=== PATIENT | female | born 1980 | race Caucasian/White ===

== ENCOUNTER 2021-12-20 14:16 | Outpatient (CLI) | payer BC, SELFPAY ==
[2021-12-20 16:51] LABS: Cholesterol* 234 mg/dL (90-199)
[2021-12-20 16:52] LABS: Glucose* 98 mg/dL (60-115); HDL Cholesterol* 63 mg/dL (>=50); LDL Cholesterol Calculated 146 mg/dL (<100); Triglycerides* 124 mg/dL (40-149)
== END 2021-12-20 14:17 | disposition home or self-care (01) ==
PROVIDERS: Visit Provider Physician Assistant
DX: N93.9 Abnormal uterine and vaginal bleeding, unspecified (principal); N83.202 Unspecified ovarian cyst, left side; R93.89 Abnormal findings on diagnostic imaging of other specified body structures
CPT/HCPCS: 80061; 82947; 84443; 87624; 88175

== ENCOUNTER 2021-12-21 07:58 | Outpatient (CLI) | payer BC, SELFPAY ==
--- NOTE | 2021-12-21 08:15 | CRLHL7_ITS ---
For Patients: As a result of the Century Cures Act, medical imaging exams and procedure reports are released immediately into your electronic medical record. You may view this report before your referring provider. If you have questions, please contact your health care provider. INDICATION: HEAVY, FREQUENT MENSES COMPARISON: none TECHNIQUE: 2D nicole scale and color Doppler images were acquired of the pelvis using a transabdominal and transvaginal approach. FINDINGS: Sonographic images demonstrate a normal size and smooth outer contour of the uterus. Uterus measures 9.7 cm in length by 4.7 cm in AP diameter by 4.9 cm in transverse dimension. The myometrium has a mildly heterogeneous echotexture. The endometrial lining appears normal and measures 3 mm in composite thickness. The right ovary measures 2.5 x 1.6 x 2.4 cm in size and the left ovary measures 5.8 x 3.8 x 4.7 cm. The ovaries demonstrate normal arterial and venous blood flow on color Doppler analysis. Simple left ovarian cyst is present measuring 5.3 x 4.0 x 4.7 cm. There are no suspicious fluid collections within the cul-de-sac. IMPRESSION: Endometrial thickness 3 millimeters. Simple left ovarian cyst measuring 5.3 cm. Dictated by Bharath Anderson MD @ 12/21/2021 10:13:16 AM (Electronically Signed)
== END 2021-12-21 07:59 | disposition home or self-care (01) ==
LOC: US 07:58
PROVIDERS: Visit Provider Physician Assistant
DX: N92.0 Excessive and frequent menstruation with regular cycle (principal); N83.202 Unspecified ovarian cyst, left side; R93.89 Abnormal findings on diagnostic imaging of other specified body structures
CPT/HCPCS: 76830; 76856; 93976

== ENCOUNTER 2022-02-20 13:00 | Outpatient (CLI) | payer BC, SELFPAY ==
--- NOTE | 2022-02-20 13:20 | CRLHL7_ITS ---
For Patients: As a result of the Cures Act, medical imaging exams and procedure reports are released immediately into your electronic medical record. You may view this report before your referring provider. If you have questions, please contact your health care provider. BILATERAL SCREENING MAMMOGRAM WITH COMPUTER-AIDED DETECTION AND TOMOSYNTHESIS TECHNIQUE: CC and MLO views were obtained. These mammographic images have been obtained using full-field digital technique. These mammographic images were interpreted with the benefit of computer-aided detection. Breast Tomosynthesis was used in this interpretation. COMPARISON FILM: Baseline. No priors available. FINDINGS: The breasts are heterogeneously dense, which may obscure small masses IMPRESSION: There is no radiographic evidence for malignancy. ASSESSMENT: BI-RADS Category 1: Negative RECOMMENDATION: Routine screening mammogram in 1 year. A lay language report of this examination will be provided to the patient. Gerry Andres M.D. Diagnostic/Nuclear Medicine Radiologist [email or web address] Transcribed: 3:20 p.m. VI/Dictated by: Gerry Andres MD @ 02/21/2022 8:19:00 AM (Electronically Signed)
== END 2022-02-20 13:01 | disposition home or self-care (01) ==
PROVIDERS: Visit Provider Physician Assistant
DX: Z12.31 Encounter for screening mammogram for malignant neoplasm of breast (principal); R92.2 Inconclusive mammogram
CPT/HCPCS: 77063; 77067

== ENCOUNTER 2023-07-11 10:05 | Outpatient (CLI) | payer BC, SELFPAY ==
--- NOTE | 2023-07-11 10:15 | MM_ITS ---
Patient: ELISA BLAKE Facility:?[facility] Patient ID:?[id number] Site Patient ID:?[id number]. Site :?[id number] Study:?XRay-Breast Bilateral 3D W/CAD-07/11/2023 10:27:49 AM Ordering Physician:Yoselyn Arriola Final Report: BILATERAL SCREENING MAMMOGRAM WITH COMPUTER-AIDED DETECTION AND TOMOSYNTHESIS TECHNIQUE: CC and MLO views were obtained. These mammographic images have been obtained using full-field digital technique. These mammographic images were interpreted with the benefit of computer-aided detection. Breast Tomosynthesis was used in this interpretation. COMPARISON FILM: 02/20/22 FINDINGS: There are scattered areas of fibroglandular density. IMPRESSION: There is no radiographic evidence for malignancy. ASSESSMENT: BI-RADS Category 1: Negative RECOMMENDATION: Routine screening mammogram in 1 year. A lay language report of this examination will be provided to the patient. Bharath Anderson M.D. Diagnostic Radiologist [email or web address] DSM/sp R& Transcribed: 4:43 p.m. SP/Dictated by: Bharath Anderson MD @ 07/20/2023 12:56:00 PM Signed by:?Bharath Anderson MD @07/20/2023 4:45:29 PM (Electronic Signature)
== END 2023-07-11 10:06 | disposition home or self-care (01) ==
LOC: MAMMO 10:05
PROVIDERS: PCP Family Medicine; Visit Provider Family Medicine
DX: Z12.31 Encounter for screening mammogram for malignant neoplasm of breast (principal)
CPT/HCPCS: 77063; 77067

== ENCOUNTER 2025-02-16 12:12 | Emergency (ER) | payer BC, SELFPAY ==
[2025-02-16] VITALS (24 sets, daily range): BP systolic 124–157; BP diastolic 67–114; PULSE 82–123; RESP 12–24; TEMP 36.3–36.4; O2SAT 73–100; BMI 31.4
--- NOTE | 2025-02-16 12:56 | CRLHL7_ITS ---
For Patients: As a result of the Century Cures Act, medical imaging exams and procedure reports are released immediately into your electronic medical record. You may view this report before your referring provider. If you have questions, please contact your health care provider. INDICATION: Left flank pain. TECHNIQUE: CT abdomen and pelvis acquired with 100 cc Omnipaque 350 IV contrast. COMPARISON: None. FINDINGS: Lung bases are clear. The liver normal in size. No definite liver lesion is seen on this unenhanced CT. The gallbladder is partially distended. No gross biliary ductal dilatation. The spleen is unremarkable. The pancreas is unremarkable. The adrenal glands are unremarkable. A dilated left renal pelvis is noted with mild left hydronephrosis. This appears to be secondary to a 3 millimeter stone within the urinary bladder adjacent to the ureterovesical junction. There is subtle high density noted adjacent which is indeterminate (series 2, image 133). A calcification within the left pelvis measuring 3.5 millimeters is favored to represent a phlebolith rather than a ureteral stone. No left renal stone is seen. Prominent right renal pelvis without overt right hydronephrosis. No right renal stone. The urinary bladder is partially distended without substantial thickening or stranding. Thickening of a decompressed rectum is likely due to underdistention. The appendix is nondilated. The small bowel is nondilated. The stomach is partially distended. No free air. No ascites. No organized drainable fluid collection is seen. No lymphadenopathy is seen. Multiple subcentimeter lymph nodes are noted. The uterus and adnexa are unremarkable. The aorta is nonaneurysmal. Bone windows demonstrate no suspicious lytic or sclerotic lesion. No fracture. IMPRESSION: 1. Mild left hydronephrosis secondary to a 3 millimeter stone within the urinary bladder adjacent to the left ureterovesical junction. There is subtle indeterminate high density noted just adjacent to the stone. Additionally there is an indeterminate 3.5 millimeter calcification within the left pelvis which is favored to represent a phlebolith rather than a ureteral stone. Short-term follow-up CT urogram may be performed for further evaluation. Please note that all CT scans at this facility use dose modulation, iterative reconstruction, and/or weight-based dosing when appropriate to reduce radiation dose to as low as reasonably achievable. Dictated by Keven Graham MD @ 02/16/2025 2:15:20 PM (Electronically Signed)
--- NOTE | 2025-02-16 12:57 | ED.GENADULT ---
HPI - General Adult General Date Seen: 02/16/25 Chief complaint: Flank Pain Stated complaint: sharp pain in L stomach and back Time Seen by Provider: 02/16/25 12:35 History of Present Illness HPI narrative: Pleasant generally healthy 44-year-old female presenting to the ER today with concern for severe left flank pain, left lower quadrant abdominal pain. She is generally healthy. She has noted a little bit of trouble where she has had urinary frequency for the past couple of days but not really similar to previous UTIs. She has not had any hematuria. Menstrual cycle started this morning. Bowel movements have been normal. About an hour and half prior to arrival she had onset of pretty severe pain in her left flank radiating to her lower quadrant. It was so severe made her nauseous and she threw up once (nonbloody). She has not had any fever. She still nauseous. She is having waves of intense pain. No history of kidney stones. Related Data Allergies Allergy/AdvReac Type Severity Reaction Status Date / Time No Known Drug Allergies Allergy Verified 04/19/23 08:02 [facility] Medical History (Updated 02/16/25 @ 16:25 by Toni Bennett MD) Obesity (BMI 30.0-34.9) ?E66.9 - Obesity, unspecified (ICD-10) Dyslipidemia ?E78.5 - Hyperlipidemia, unspecified (ICD-10) ADHD ?F90.9 - Attention-deficit hyperactivity disorder, unspecified type (ICD-10) Menorrhagia ?N92.0 - Excessive and frequent menstruation with regular cycle (ICD-10) Depression with anxiety ?F41.8 - Other specified anxiety disorders (ICD-10) Surgical History History of loop electrical excision procedure (LEEP) (~2002) ?Z98.890 - Other specified postprocedural states (ICD-10) History of broken finger (~2002) ?Z87.81 - Personal history of (healed) traumatic fracture (ICD-10) History of foot surgery (~2002) ?Z98.890 - Other specified postprocedural states (ICD-10) Family History Diabetes Father Paternal Grandfather ADHD Daughter Son High blood pressure Father Thyroid disease Maternal Grandmother Stroke Sister, Onset Age: 35 Social History (Updated 11/03/22 @ 09:19 by Yoselyn Rojas MD) Narrative: . 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 Quit 2005, history of 2 pack years Rare alcohol use. exercise, walking 20 min , jumping rope Denies recreational drug use. No concerns with safety or abuse. Smoking Status: Former smoker How often do you have a drink containing alcohol: never How often do you have six or more drinks on one occasion: Never AUDIT-C Alcohol total score: 0 Non-prescribed substance use: denies use Exam Narrative: Exam Narrative: Constitutional: Appears well-developed and well-nourished. Alert. Standing up at the bedside holding her left side, rocking back and forth. Looks quite uncomfortable. HENT: Head: Atraumatic. Nose: Nose normal. Mouth/Throat: Oral mucosa is clear and moist. no trismus. Eyes: Conjunctivae normal. EOM normal. Pupils equal, round, and reactive to light. No scleral icterus. Neck: Normal range of motion. Neck supple. No tracheal deviation present. Cardiovascular: Normal rate, regular rhythm. No gallop. No friction rub. No murmur heard Pulmonary/Chest: Effort normal. No stridor. No respiratory distress. No wheezes. No rales. No rhonchi . No ribcage tenderness. Abdominal: Soft. Bowel sounds normal. No distension. No mass. Left CVA and left lower quadrant tenderness. No rebound. No guarding. No bruising or rash. Musculoskeletal: RUE: Normal range of motion. No tenderness. No deformity LUE: Normal range of motion. No tenderness. No deformity RLE: Normal range of motion. No edema. No tenderness. No deformity LLE: Normal range of motion. No edema. No tenderness. No deformity Neurological: Alert and oriented to person, place, and time. Normal strength. CN II-VII intact. No sensory deficit. GCS eye subscore is 4. GCS verbal subscore is 5. GCS motor subscore is 6. Normal coordination Skin: Skin is warm and dry. No rash noted. No pallor. Normal capillary refill. Psychiatric: Normal mood. Normal affect. Const: Vital Signs, click to edit/add: Vital Signs - 24 hr 02/16/25 12:22 02/16/25 13:23 02/16/25 13:30 Temperature 97.6 F Pulse Rate 88 82 Pulse Rate [Pulse Oximeter] 92 Respiratory Rate 24 Blood Pressure Blood Pressure [Ri ght Upper Arm] 157/84 H Pulse Oximetry 98 100 100 Oxygen Delivery Me thod Room Air Oxygen Flow Rate 02/16/25 13:36 02/16/25 13:37 02/16/25 14:03 Temperature Pulse Rate 82 85 Pulse Rate [Pulse Oximeter] Respiratory Rate Blood Pressure 147/91 H 142/83 H Blood Pressure [Ri ght Upper Arm] Pulse Oximetry 100 100 Oxygen Delivery Me thod Oxygen Flow Rate 02/16/25 14:30 02/16/25 14:51 02/16/25 15:00 Temperature Pulse Rate 90 93 106 H Pulse Rate [Pulse Oximeter] Respiratory Rate 12 Blood Pressure 148/94 H 152/93 H Blood Pressure [Ri ght Upper Arm] Pulse Oximetry 98 93 94 Oxygen Delivery Me thod Oxygen Flow Rate 02/16/25 15:30 02/16/25 16:00 02/16/25 16:14 Temperature Pulse Rate 95 123 H 102 H Pulse Rate [Pulse Oximeter] Respiratory Rate Blood Pressure 138/82 Blood Pressure [Ri ght Upper Arm] Pulse Oximetry 96 98 98 Oxygen Delivery Me thod Oxygen Flow Rate 02/16/25 16:34 02/16/25 16:45 02/16/25 17:00 Temperature Pulse Rate 112 H 118 H 91 Pulse Rate [Pulse Oximeter] Respiratory Rate Blood Pressure 145/114 H Blood Pressure [Ri ght Upper Arm] Pulse Oximetry 99 100 94 Oxygen Delivery Me thod Room Air Oxygen Flow Rate 02/16/25 17:01 02/16/25 17:02 02/16/25 17:02 Temperature Pulse Rate 92 100 Pulse Rate [Pulse Oximeter] Respiratory Rate Blood Pressure 138/79 Blood Pressure [Ri ght Upper Arm] Pulse Oximetry 73 L 94 95 Oxygen Delivery Me thod Nasal Cannula Nasal Cannula Nasal Cannula Oxygen Flow Rate 2.5 2.5 2.5 02/16/25 17:10 Temperature Pulse Rate Pulse Rate [Pulse Oximeter] Respiratory Rate Blood Pressure Blood Pressure [Ri ght Upper Arm] Pulse Oximetry 98 Oxygen Delivery Me thod Nasal Cannula Oxygen Flow Rate 1 Course Vital Signs Vital signs: Initial Vital Signs Temperature 97.6 F 02/16/25 12:22 Temperature Source Temporal Artery Scan 02/16/25 12:22 Pulse Rate 92 02/16/25 12:22 Respiratory Rate 24 02/16/25 12:22 Blood Pressure 157/84 H 02/16/25 12:22 Blood Pressure Mean 108 H 02/16/25 12:22 Blood Pressure Position Sitting 02/16/25 12:22 Pulse Oximetry 98 02/16/25 12:22 Oxygen Delivery Method Room Air 02/16/25 12:22 Vital Signs Temperature 97.6 F 02/16/25 12:22 Pulse Rate 92 02/16/25 12:22 Respiratory Rate 24 02/16/25 12:22 Blood Pressure 157/84 H 02/16/25 12:22 Pulse Oximetry 98 02/16/25 12:22 Oxygen Delivery Method Room Air 02/16/25 12:22 Temperature 97.6 F 02/16/25 12:22 Pulse Rate 100 02/16/25 17:02 Respiratory Rate 12 02/16/25 14:30 Blood Pressure 138/79 02/16/25 17:01 Pulse Oximetry 98 02/16/25 17:10 Oxygen Delivery Method Nasal Cannula 02/16/25 17:10 Oxygen Flow Rate 1 02/16/25 17:10 Medications Administered Medications: Generic Name Dose Route Start Last Admin Trade Name Freq PRN Reason Stop Dose Admin Hydromorphone HCl 0.5 mg 02/16/25 12:56 02/16/25 16:10 Hydromorphone 0.5 Mg/0.5 Ml Inj IVP 0.5 mg Q1H PRN Administration Pain Hydromorphone HCl 0.5 mg 02/16/25 13:42 02/16/25 16:27 Hydromorphone 0.5 Mg/0.5 Ml Inj IVP 0.5 mg Q1H PRN Administration Pain Discontinued Medications Generic Name Dose Route Start Last Admin Trade Name Freq PRN Reason Stop Dose Admin Hydromorphone HCl 1 mg 02/16/25 14:38 02/16/25 14:00 Hydromorphone 0.5 Mg/0.5 Ml Inj IVP 02/16/25 14:39 1 mg ONCE ONE Administration Sodium Chloride 1,000 mls @ 1,000 mls/hr 02/16/25 13:00 02/16/25 14:15 0.9 % Sodium Chloride 1000 Ml IV 02/16/25 13:59 Infused .Q1H ANASTACIA Infusion Sodium Chloride 1,000 mls @ 1,000 mls/hr 02/16/25 15:45 02/16/25 16:45 0.9 % Sodium Chloride 1000 Ml IV 02/16/25 16:44 Infused .Q1H ANASTACIA Infusion Ceftriaxone Sodium 1 gm/ 100 mls @ 200 mls/hr 02/16/25 16:20 02/16/25 17:25 Sodium Chloride IVPB 02/16/25 16:49 200 mls/hr ONCE ONE Administration Acetaminophen 1,000 mg in 100 mls @ 400 mls/hr 02/16/25 16:24 02/16/25 16:54 Acetaminophen Inj IVPB 02/16/25 16:38 Infused ONCE ONE Infusion Ketamine HCl 30 mg/ Sodium 100.3 mls @ 200.6 mls/hr 02/16/25 16:34 02/16/25 17:20 Chloride IVPB 02/16/25 16:35 Infused ONCE ONE Infusion Ketorolac Tromethamine 15 mg 02/16/25 12:56 02/16/25 13:11 Ketorolac 15 Mg/Ml Inj IVP 02/16/25 12:57 15 mg ONCE ONE Administration Ondansetron HCl 4 mg 02/16/25 12:56 02/16/25 13:11 Ondansetron 2 Mg/Ml Inj IVP 02/16/25 12:57 4 mg ONCE ONE Administration Ondansetron HCl 4 mg 02/16/25 15:36 02/16/25 15:39 Ondansetron 2 Mg/Ml Inj IVP 02/16/25 15:37 4 mg ONCE ONE Administration Medical Decision Making MDM Narrative Medical decision making narrative: This patient presents with sudden onset of severe flank pain. Differential Diagnosis considered includes: Ureterolithiasis, UTI, pyelonephritis, AAA, colitis, diverticulitis, volvulus, appendicitis, among others. At this point, the evaluation indicates that ureterolithiasis is the cause of the patient's symptoms. Initial Urinalysis shows 25-50 red cells and white cells. Also moderate bacteria but is contaminated. With a question of possible infection, even though she is afebrile and not ?septic? appearing we will start her on IV antibiotics-Rocephin to cover possible UTI. I have ordered and we are attempting to obtain a repeat, clean-catch urine sample to see if this is truly an infection or not. The patient does have fairly significant and very difficult to control pain. After her 1st dose of Toradol and her 1st 3 doses of Dilaudid (1.5 mg total) she seemed to be much improved but her pain flared up again. I suspect she was probably in a trough between waves of colicky pain. She has received initial 3 doses of Dilaudid as well as IV acetaminophen and IV ketamine for pain control. At this point we have given her enough pain meds to make her mildly hypoxic requiring nasal cannula. She is more comfortable but not really well controlled yet. It is clear that she cannot discharge home with oral pain medications and expect adequate pain relief. Therefore hospitalization is indicated Discussed with our hospitalist, obi cagle. She advises that since this patient has an obstructing kidney stone the transfer is indicated rather than hospitalization here in [place] for pain control. Discussed this with the patient. She agrees with plan for transfer. She requests transfer to [facility] [place]. I contacted the [facility] transfer line and, unfortunately that, they have no open beds in their system. Therefore male was not an option today. I was able to contact the a line access center and there is an open bed for this patient at [facility]. [facility] has the capacity to control her pain as well as urologic consult taking service. Patient is agreeable to transfer to [facility]. Patient is accepted by Dr. Khnana, hospitalist. At the time of this dictation the patient remains hemodynamically stable, but on oxygen. Discussed with my oncoming partner, Dr. Tejada, will monitor the patient's condition and administer additional meds as needed. We are currently awaiting her bed assignment and [facility] and anticipate transfer soon. Lab Data Labs: Lab Results 02/16/25 02/16/25 Range/Units 13:00 14:45 WBC 9.11 (4.50-11.00) K/uL RBC 4.78 (4.00-5.20) m/uL Hgb 14.4 (12.0-16.0) gm/dL Hct 41.6 (33.0-51.0) % MCV 87 (80-100) fL MCH 30 (26-34) pg MCHC 35 (32-36) gm/dL RDW Coeff of Nava 11.8 (11.5-15.5) % Plt Count 319 (140-440) K/uL Neut % (Auto) 65.8 (42.0-72.0) % Lymph % (Auto) 24.9 (20-44) % Vermilion % (Auto) 8.2 (0.0-11.0) % Eos % (Auto) 0.8 (0.0-7.0) % Baso % (Auto) 0.1 (0.0-3.0) % Neut # (Auto) 5.99 (1.7-7.0) K/uL Lymph # (Auto) 2.27 (0.90-2.90) K/uL Vermilion # (Auto) 0.70 (0.00-0.90) K/UL Eos # (Auto) 0.07 (0.00-0.50) K/uL Baso # (Auto) 0.01 (0.00-0.30) K/uL Abs Immat Gran (auto) 0.02 (0.00-0.30) K/uL Imm/Tot Granulo (auto) 0.2 % Sodium 135 (135-149) mmol/L Potassium 3.5 L (3.6-5.1) mmol/L Chloride 106 (96-114) mmol/L Carbon Dioxide 21 (20-32) mmol/L Anion Gap 8 (7-15) mEq/L BUN 13 (5-24) mg/dL Creatinine 0.9 (0.5-1.5) mg/dL Estimated Creat Clear 69.60 Estimated GFR 81 ml/min Glucose 110 (60-115) mg/dL Calcium 9.3 (8.4-10.6) mg/dL Lipase 54 (23-300) U/L HCG, Qual Negative (Negative) Urine Color Red A (Yellow) Urine Appearance Turbid A (Clear) Urine pH 8.5 (5.0-8.5) Ur Specific Phyllis 1.020 (1.000-1.030) Urine Protein 2+ A (Negative) Urine Glucose (UA) Negative (Negative) Urine Ketones 2+ A (Negative) Urine Blood 3+ A (Negative) Urine Nitrite Negative (Negative) Urine Bilirubin Negative (Negative) Urine Urobilinogen 0.2 (0.2-1.0) Ur Leukocyte Esterase Trace A (Negative) Urine RBC 25-50 A (0-2) Urine WBC 25-50 A (0-5) Ur Squamous Epith Cells Moderate A (None-Few) Urine Bacteria Moderate A (None) Fine Granular Casts Few A (None) Imaging Data CT scan - abdomen: Attestation: I have reviewed the pertinent imaging results. Radiologist's impression: IMPRESSION: 1. Mild left hydronephrosis secondary to a 3 millimeter stone within the urinary bladder adjacent to the left ureterovesical junction. There is subtle indeterminate high density noted just adjacent to the stone. Additionally there is an indeterminate 3.5 millimeter calcification within the left pelvis which is favored to represent a phlebolith rather than a ureteral stone. Short-term follow-up CT urogram may be performed for further evaluation. Discharge Plan Discharge Clinical Impression: Kidney stone, Pyuria Patient Disposition: Xfer Other Stand Alone Forms: [employer] Info Instructions
[2025-02-16 13:07] LABS: Hematocrit* 41.6 % (33.0-51.0); Hemoglobin* 14.4 gm/dL (12.0-16.0); Immature Granulocytes Abs Auto 0.02 K/uL (0.00-0.30); Immature Granulocytes Pct Auto 0.2 %; Lymphocytes Absolute Auto 2.27 K/uL (0.90-2.90); Mean Corpuscular HGB Conc 35 gm/dL (32-36); Mean Corpuscular Hemoglobin 30 pg (26-34); Mean Corpuscular Volume 87 fL (80-100); RDW Coefficient of Variation % 11.8 % (11.5-15.5); Red Blood Count* 4.78 m/uL (4.00-5.20); White Blood Count* 9.11 K/uL (4.50-11.00)
[2025-02-16 13:08] LABS: Slide Review Reflex No
[2025-02-16] MEDS: ONDANSETRON 2 MG/ML inj 4 MG IVP ×2 (13:11→15:39)
[2025-02-16 13:19] LABS: Chloride* 106 mmol/L (96-114); Potassium* 3.5 mmol/L (3.6-5.1); Sodium* 135 mmol/L (135-149)
[2025-02-16 13:22] LABS: Anion Gap 8 mEq/L (7-15); Blood Urea Nitrogen* 13 mg/dL (5-24); Calcium* 9.3 mg/dL (8.4-10.6); Carbon Dioxide* 21 mmol/L (20-32); Creatinine* 0.9 mg/dL (0.5-1.5); Est. Creatinine Clearance* 69.60; Estimated Glomerular Filt Rate 81 ml/min; Glucose* 110 mg/dL (60-115)
[2025-02-16 13:40] LABS: HCG Qualitative Serum* Negative (Negative)
[2025-02-16 15:20] LABS: Appearance Urine Turbid (Clear)
[2025-02-16] MEDS: ACETAMINOPHEN INJ 1,000 MG/100 ML VIAL 400 MG IVPB (16:36)
[2025-02-16] MEDS: cefTRIAXone 1 GM in 0.9 % SODIUM CHLORIDE Mini-bag 100 ML IVPB (17:25)
[2025-02-16 18:19] LABS: Appearance Urine Cloudy (Clear)
== END 2025-02-16 19:27 | disposition other institution (70) ==
PROVIDERS: Emergency Provider Emergency Medicine; PCP Family Medicine
DX: N13.2 Hydronephrosis with renal and ureteral calculous obstruction (principal); R09.02 Hypoxemia
CPT/HCPCS: 36415; 74176; 80048; 81001; 83690; 84703; 85025; 87086; 94761; 96361; 96365; 96375; 96376; 99284; 99285; J0131; J0696; J1171; J1885; J2405; J3490; J7030

== ENCOUNTER 2025-02-16 19:19 | Outpatient (CLI) | payer BC, SELFPAY | END 2025-02-16 19:20 | disposition home or self-care (01) | LOC: AMB 02-20 13:11 | PROVIDERS: PCP Family Medicine; Visit Provider Emergency Medicine Emergency Medical Services | DX: N20.0 Calculus of kidney (principal); R82.81 Pyuria | CPT/HCPCS: A0425; A0427 ==